=== PATIENT | female | born 1945 | race Caucasian/White ===

== ENCOUNTER → 2016-09-28 | Outpatient (CLI) | payer OTHER | LOC: BMCIMAGING 13:37 | PROVIDERS: ATTEND Internal Medicine Endocrinology, Diabetes & Metabolism | DX: E04.2 Nontoxic multinodular goiter (principal) | CPT/HCPCS: 76536-PO ==

== ENCOUNTER → 2016-12-29 | Outpatient (CLI) | payer OTHER | LOC: FIMAGING 08:21 | PROVIDERS: ATTEND Obstetrics & Gynecology | DX: Z12.31 Encounter for screening mammogram for malignant neoplasm of breast (principal) | CPT/HCPCS: G0202 ==

== ENCOUNTER → 2017-04-26 | Outpatient (CLI) | payer OTHER | LOC: BMCIMAGING 11:01 | PROVIDERS: ATTEND Physician Assistant | DX: Z47.1 Aftercare following joint replacement surgery (principal); Z96.641 Presence of right artificial hip joint ==

== ENCOUNTER → 2018-04-28 | Outpatient (CLI) | payer OTHER | LOC: FIMAGING 07:38 | PROVIDERS: ATTEND Internal Medicine | DX: Z12.31 Encounter for screening mammogram for malignant neoplasm of breast (principal) ==

== ENCOUNTER 2018-07-27 20:34 | Emergency (ER) | payer OTHER ==
[2018-07-27 20:45] VITALS: BP 129/91
--- NOTE | 2018-07-27 20:54 | EDPHY ---
H & P Stated Complaint: Dx with Flu today, feeling SOB Time Seen by Provider: 07/27/18 20:47 HPI/ROS: CHIEF COMPLAINT: Flu, short of breath HISTORY OF PRESENT ILLNESS: The patient is a 73-year-old female who was diagnosed with influenza today at Urgent Care. She states that she began having sore throat and runny nose and fevers on Wednesday but she was in [place]. She then flew here and felt a little bit worst yesterday. Today she presented to the urgent care and was found have flu A. She was started on Tamiflu and has had 2 doses so far. She took Tylenol 3 hr ago. She called her doctor and told her that she felt slightly short of breath and they recommended she come to the ER. She denies chest pain. She denies nausea vomiting. Severity: Moderate Modifying factors: None REVIEW OF SYSTEMS: Constitutional: denies: chills, fever, recent illness, recent injury EENTM: denies: blurred vision, double vision, nose congestion Respiratory: See HPI Cardiac: denies: chest pain, irregular heart rate, lightheadedness, palpitations Gastrointestinal/Abdominal: denies: abdominal pain, diarrhea, nausea, vomiting, blood streaked stools Genitourinary: denies: dysuria, frequency, hematuria, pain Musculoskeletal: denies: joint pain, muscle pain Skin: denies: lesions, rash, jaundice, bruising Neurological: denies: headache, numbness, paresthesia, tingling, dizziness, weakness Hematologic/Lymphatic: denies: blood clots, easy bleeding, easy bruising Immunologic/allergic: denies: HIV/AIDS, transplant 10 systems reviewed and negative except as noted EXAM: GENERAL: Well-appearing, well-nourished and in no acute distress. Saturating 93% on room air. HEAD: Atraumatic, normocephalic. EYES: Pupils equal round and reactive to light, extraocular movements intact, sclera anicteric, conjunctiva are normal. ENT: TMs normal, nares patent, oropharynx clear without exudates. Moist mucous membranes. NECK: Normal range of motion, supple without lymphadenopathy or JVD. LUNGS: Breath sounds clear to auscultation bilaterally and equal. No wheezes rales or rhonchi. HEART: Regular rate and rhythm without murmurs, rubs or gallops. ABDOMEN: Soft, nontender, normoactive bowel sounds. No guarding, no rebound. No masses appreciated. BACK: No CVA tenderness, no spinal tenderness, step-offs or deformities EXTREMITIES: Normal range of motion, no pitting or edema. No clubbing or cyanosis. NEUROLOGICAL: Cranial nerves II through XII grossly intact. Normal speech, normal gait. 5/5 strength, normal movement in all extremities, normal sensation , normal reflexes PSYCH: Normal mood, normal affect. SKIN: Warm, dry, normal turgor, no visible rashes or lesions. Source: Patient Exam Limitations: No limitations - Personal History Current Tetanus/Diphtheria Vaccine: Yes Current Tetanus Diphtheria and Acellular Pertussis (TDAP): Yes - Medical/Surgical History Hx Asthma: No Hx Chronic Respiratory Disease: No Hx Diabetes: No Hx Cardiac Disease: No Hx Renal Disease: No Hx Cirrhosis: No Hx Alcoholism: No Hx HIV/AIDS: No Hx Splenectomy or Spleen Trauma: No Other PMH: hip/knee replacement - Family History Significant Family History: No pertinent family hx - Social History Smoking Status: Former smoker Alcohol Use: None Drug Use: None Constitutional: Initial Vital Signs Temperature (C) 37.8 C 07/27/18 20:42 Heart Rate 83 07/27/18 20:42 Respiratory Rate 16 07/27/18 20:42 Blood Pressure 129/91 H 07/27/18 20:42 O2 Sat (%) 93 07/27/18 20:42 O2 Delivery Mode Room Air Allergies/Adverse Reactions: NSAIDS (Non-Steroidal Anti-Inflamma [Nsaids] Allergy (Severe, Verified 07/27/18 20:40) Other-Enter Comments ascorbic acid [From Red Wine Extract Plus] Allergy (Verified 07/27/18 20:40) Other-Enter Comments avocado [Avocado] Allergy (Verified 07/27/18 20:40) Other-Enter Comments diclofenac [Diclofenac] Allergy (Verified 07/27/18 20:40) Other-Enter Comments Dietary Supplement,[email or web address] [From Red Wine Extract Plus] Allergy (Verified 20:40) Other-Enter Comments nickel Allergy (Verified 07/27/18 20:40) CHLORINE Allergy (Uncoded 07/27/18 20:40) Other-Enter Comments Home Medications: Medication Instructions Recorded Tamiflu 07/27/18 Medical Decision Making - Diagnostics Imaging Results: Imaging Impressions Chest X-Ray 07/27/18 20:51 Impression: No acute pulmonary disease. Imaging: Discussed imaging studies w/ warranty manager Radiologist ED Course/Re-evaluation: Patient's x-ray looks reassuring. We had her road test and she remained in 93 year above the entire time with her heart rate in the 80s. She feels reassured and is eager to go home. She will continue taking Tamiflu. We discussed indications for returning. Differential Diagnosis: Partial list of the Differential diagnosis considered include but were not limited to; influenza, pneumonia, bronchitis and although unlikely based on the history and physical exam, I also considered strep throat, sepsis. Departure - Departure Disposition: Home, Routine, Self-Care Clinical Impression: Influenza A Condition: Fair Instructions: Influenza (ED) Additional Instructions: Continue taking Tamiflu Referrals: Bernice Mixon MD [Primary Care Provider] - 2-3 days, call for appt.
== END 2018-07-27 21:27 | disposition home or self-care (01) ==
DX: J10.1 Influenza due to other identified influenza virus with other respiratory manifestations (principal); Z87.891 Personal history of nicotine dependence